=== PATIENT | female | born 1955 | race Caucasian/White ===

== ENCOUNTER → 2016-08-13 | Outpatient (CLI) | payer BC ==
[~2016-08-13] MED LIST: ADV10050 INH; ALBU18HF IH; ASCO1500 PO; ATOR10TA65 PO; CALC-543 PO; CITA-104 PO; ESTR1PAT60 TD; FERR240T9 PO; FEXO1TAB PO; FURO20TA3 PO; METH750T2 PO; METO2.5T12 PO; MULT-761 PO; OMEG100011 PO; POTA10TA18 PO; TRET20CR5 TOP
--- NOTE | 2016-08-13 16:16 | RADRPT ---
PROCEDURE: XR bilateral knees. CLINICAL INDICATION: Knee pain. TECHNIQUE: AP weightbearing, lateral weightbearing and sunrise views of each knee are available fo r review. 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 There is no evidence of loosening of the prosthesis. There is no evidence of hardware failure. The osseous structures are normal in mineralization, archi tecture and alignment No acute fracture or dislocation is seen.No osseous lesions are identified. T he soft tissues are unremarkable . Left knee: The osseous structures are normal in mineralization, architecture and alignment. No fractures are i dentified. No osseous lesions are identified. The joints are unremarkable. The soft tissues are u nremarkable. IMPRESSION: Unremarkable right constrained total knee replacement. Unremarkable left knee RPTAT: [facility] .Popeye Hampton MD, Date Time Electronically viewed and signed by .Popeye Hampton MD, on 08/13/2016 16:16 .B/
--- NOTE | 2016-08-13 16:29 | PN ---
Date/Time of Note Date/Time of Note DATE: 08/13/16 TIME: 16:23 Outpatient Progress Note Chief Complaint Off-and-on left knee pain HPI 61-year-old female presents today regarding off and on left knee pain. Currently, patient states that she is having no pain complaints. She denies any limited functionality to the left knee. Denies any falls or injuries. Her primary complaint is usually after she has been sitting for a prolonged amount of time or driving for an extended period of time she has stiffness to the knee. Pain is generalized but sometimes she states that is primarily posterior. Denies any secondary injuries due to knee pain. Patient has had cortisone injection to the left knee in the past with the last one being in April 2015 which provided significant relief. She did have flareup of pain of a couple weeks ago which was self-limiting. Does not take any anti- inflammatories or supportive measures. Patient remains active in regards to exercise on the treadmill. History is significant for right total knee arthroplasty on 10/03/2014. Review of Systems Const: No Fever, no chills, no Fatigue, normal appetite, no diaphoresis. Resp: No SOB, no wheezing, no chest pain. CV: No chest pain, no palpitaions, no MENDES. Physical Exam Blood pressure is 116/57, temperature is 98.5, pulse of 72, respiratory rate is 12, height is 5 feet 5 inches, weight is 165 pounds. General Appearance: well-developed, well-nourished, in no acute distress. Left knee: Full range of motion to the left knee. Patient denies any pain with range motion today. 5/5 strength. Gait is normal and nonantalgic on exam today. Varicose veins to the right and left lower extremity. Varicosities are worse on the left. Imaging X-ray of the bilateral knees performed on 08/13/2016 showing all components appearing well aligned, attached and integrated to the bone. No signs of any lucency between metal and bone on the right side. On the left side, there is moderate joint space narrowing with moderate osteoarthritic changes. No signs of any acute injury. On sunrise view there is moderate to severe joint space narrowing along the lateral side. Allergies Coded Allergies: No Known Allergy (Unverified , 12/28/14) Assessment/Plan * Supportive measures for osteoarthritis discussed today. Activity modification also discussed. Avoid prolonged sitting/driving if possible as this usually increases stiffness and pain to the knee. * Anti-inflammatories recommended. Ibuprofen 800 mg 1 tab p.o. 3 times daily # 90 tablets with one refill provided for patient today with instructions to use as needed for pain and inflammation and patient states understanding. * Ice modalities recommended at times of inflammation. * Should pain progressively worsen or become more consistent, patient was advised to follow-up in office for discussion of repeat cortisone injection to the left knee. * Follow-up as needed. Medications Home Meds Reported Medications Tretinoin* (Tretinoin* Cream) 0.025% - 20 Gm Cream..g., 1 APPLIC TOP HS, TUB 10/03/14 [place]-3 Fatty Acids/Fish Oil* (Fish Oil *) 1,000 Mg Capsule, 1000 MG PO DAILY, CAP 10/03/14 Methocarbamol* (Methocarbamol*) 750 Mg Tablet, 750 MG PO Q6H Y for MUSCLE SPASMS , TAB 10/03/14 Albuterol Sulfate* (Ventolin HFA*) 18 Gm Hfa.aer.ad, 2 PUFF IH Q4H Y for WHEEZING AND RESP DISTRESS, EA 10/03/14 Salmeterol Xinaf-Fluticasone* (Advair*) 100/50 Diskus Inhaler, 1 INH INH BID Y for SHORTNESS OF BREATH, INH 10/03/14 P-Ephed Hcl/Fexofenadine Hcl (Beatriz-D 12 Hour Tablet) 1 Tab.sr .12 H Tab.sr.12h, 1 TAB.SR PO 10/03/14 Ferrous Gluconate (Iron) 1 Tab Tablet, 1 TAB PO 10/03/14 Calcium Carb & Cit-Vitamin D3 (Calcium + D3 ER) 1 Each Tablet.er, 1 TAB PO DAILY , TAB 10/03/14 Multivitamin (MULTI VITAMIN DAILY) 1 Each Tablet, 1 TAB PO DAILY, TAB 10/03/14 Ascorbic Acid* (Vitamin C*) 1,500 Mg Tablet.sa, 1000 MG PO DAILY, TAB.SA 10/03/14 Estradiol (Vivelle-Dot) 1 Patch.bwk Patch.tdsw, 1 PATCH.BWK TD 10/03/14 Metolazone* (Metolazone*) 2.5 Mg Tablet, 2.5 MG PO TWICE A WEEK, TAB 10/03/14 Furosemide* (Furosemide*) 20 Mg Tablet, 20 MG PO TWICE A WEEK, TAB 10/03/14 Citalopram Hydrobromide* (Citalopram Hydrobromide*) 40 Mg Tablet, 40 MG PO DAILY , TAB 10/03/14 Atorvastatin Calcium (Atorvastatin Calcium) 10 Mg Tab, 10 MG PO HS, TAB 10/03/14 Potassium Citrate* (Potassium Citrate* ER) 10 Meq Tablet.sa, 20 MEQ PO DAILY, TAB.SA 10/03/14 JANETTE FISHMAN PA-C August 13, 2016 16:29
--- NOTE | 2016-08-14 04:31 | HKNOTE ---
DATE OF SERVICE: 08/13/2016 The patient comes in requesting repeat cortisone injection into the left knee. The last cortisone i njection gave a great deal of relief. She had a right knee replacement before which was performed by me, and she is very pleased with the results of surgery. PHYSICAL EXAMINATION: The left knee clinical characteristic signs of degenerative arthritis. MANAGEMENT: Under sterile conditions, given injection of 2 mL of Kenalog and 6 mL of 2% lidocaine i nto the knee, and she will be seen again as necessary for further evaluation and treatment. Dictated By: DOMINIC CALI/ISAC Conf#: [id number] DID#: [id number]
== END | disposition home or self-care (01) ==
LOC: HKI 15:00
DX: M25.562 Pain in left knee (principal)
CPT/HCPCS: 73562; G0463